=== PATIENT | male | born 1990 | race American Indian/Alaskan Native ===

== ENCOUNTER 2016-11-07 19:26 | Emergency (ER) | payer OTHER ==
[2016-11-07 21:16] VITALS: BP 130/83
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
[2016-11-07] MEDS ORDERED: FLEXERIL PO ONE (23:09)
[2016-11-07] MEDS ORDERED: MOTRIN PO ONE (23:09)
--- NOTE | 2016-11-08 09:53 | XRay Report ---
LEFT SHOULDER: History: Left shoulder pain. Routine views demonstrate normal bony and soft tissue structures with normal joint alignment of the shoulder. IMPRESSION: Normal study.
== END 2016-11-07 23:17 | disposition home or self-care (01) ==
LOC: EDBD → ED 19:26
DX: S39.012A Strain of muscle, fascia and tendon of lower back, initial encounter (principal); V49.49XA Driver injured in collision with other motor vehicles in traffic accident, initial encounter; X58.XXXA Exposure to other specified factors, initial encounter; Y93.9 Activity, unspecified; Y92.9 Unspecified place or not applicable; Y99.9 Unspecified external cause status
CPT/HCPCS: 70450; 72125; 72131